=== PATIENT | female | born 1980 | race Hispanic/Latino ===

== ENCOUNTER 2019-11-14 17:05 | Observation (INO) | payer OTHER ==
[~2019-11-14] VITALS: Ht 167.6 cm; Wt 75.7 kg
[2019-11-14 18:11] LABS: APPEARANCE,URINE Clear (CLEAR); BILIRUBIN,URINE Negative (NEGATIVE); COLOR,URINE Yellow (YELLOW); GLUCOSE, URINE (UA) Negative (NEGATIVE); KETONES,URINE >=80 mg/dL (NEGATIVE); LEUKOCYTE ESTERASE ,URINE Negative (NEGATIVE); NITRATE,URINE Negative (NEGATIVE); OCCULT BLOOD,URINE Nonhemolyzed Trace (NEGATIVE); PROTEIN,URINE Trace mg/dL (NEGATIVE)
[2019-11-14 18:28] LABS: BACTERIA,URINE None Seen /HPF (None Seen); MUCUS,URINE Few LPF (None Seen); RENAL EPITHELIAL CELLS,URINE Few /HPF (None Seen); TRANSITIONAL EPI CELLS,URINE Few /HPF (None Seen); WBC,URINE 0-1 /HPF (0-1)
[2019-11-14] MEDS ORDERED: LACTATED RINGERS 1000ML 1,000 ML IV PRN (18:34)
[2019-11-14 18:45] LABS: HEMATOCRIT 35.8 % (36-48); MEAN CORPUSCULAR HEMOGLOBIN 27.9 pg (27.0-33.0); MEAN CORPUSCULAR HGB CONC 32.4 g/dL (32.0-36.0); MEAN CORPUSCULAR VOLUME 86.1 fL (79-99); RED BLOOD CELL COUNT(AUTO) 4.16 MIL/uL (4.00-5.50); RED CELL DISTRIBUTION WIDTH 15.3 % (11.0-15.5)
[2019-11-14] MEDS ORDERED: PROMETHAZINE HCL 25 MG/ML 1ML AMPULE IM SCH (18:45)
[2019-11-14] MEDS ORDERED: MEPERIDINE-PF 50 MG/ML SYG IM ONE (18:45)
[2019-11-14] MEDS ORDERED: CEFTRIAXONE SODIUM 1 GM IV ONE (18:45)
[2019-11-14] MEDS ORDERED: ACETAMINOPHEN-CODEINE 300/30MG TAB ONE (21:14)
[2019-11-14] MEDS ORDERED: ACETAMINOPHEN-CODEINE 300/30MG TAB PO ONE (21:15)
[2019-11-14] MEDS ORDERED: MEPERIDINE-PF 50 MG/ML SYG IM PRN (21:45)
[2019-11-14] MEDS ORDERED: PROMETHAZINE HCL 25 MG/ML 1ML AMPULE IM PRN (21:45)
[2019-11-14] MEDS: LACTATED RINGERS 1000ML 1,000 ML IV SCH (23:09)
[2019-11-15 07:18] LABS: ALBUMIN 2.4 g/dL (3.5-5.0); BILIRUBIN,TOTAL 0.7 mg/dL (0.2-1.0); CREATININE 0.6 mg/dL (0.5-1.5); TOTAL PROTEIN, SERUM 6.1 g/dL (6.0-8.3)
[2019-11-15 07:55] LABS: AMPHET/METH SCREEN,URINE NEGATIVE (NEGATIVE); BARBITURATE SCREEN, URINE NEGATIVE (NEGATIVE); BENZODIAZEPINES SCREEN,URINE NEGATIVE (NEGATIVE); CANNABINOID SCREEN,URINE NEGATIVE (NEGATIVE); COCAINE SCREEN,URINE NEGATIVE (NEGATIVE); OPIATE SCREEN,URINE NEGATIVE (NEGATIVE); PHENCYCLIDINE SCREEN,URINE NEGATIVE (NEGATIVE)
[2019-11-15] MEDS ORDERED: PROMETHAZINE HCL 25 MG/ML 1ML AMPULE IM PRN (08:15)
[2019-11-15] MEDS ORDERED: MEPERIDINE-PF 50 MG/ML SYG IVP PRN (08:15)
[2019-11-15 08:26] VITALS: BP 98/56
[2019-11-15] MEDS: LACTATED RINGERS 1000ML 1,000 ML IV SCH (10:31)
[2019-11-15 11:08] VITALS: BP 100/63
--- NOTE | 2019-11-15 12:30 | NUR ---
strained urine and pt passed a small stone. notified Dr. solorio and ordered to send specimen to pathology. Addendum: 11/15/19 at 1250 by JOSÉ MIGUEL POLLARD RN Amended: Links added.
[2019-11-15 15:24] VITALS: BP 120/75
--- NOTE | 2019-11-15 15:25 | NUR ---
pt is discharged, verbal and written discharge instructions given, pls refer to [facility]. informed of the follow up appointment. No prescription given. informed to call the doctor for further concerns. pt voiced understanding to all things discussed. Addendum: 11/15/19 at 1549 by JOSÉ MIGUEL POLLARD RN Amended: Links added.
--- NOTE | 2019-11-15 16:00 | NUR ---
pt is dismissed in stable condition. brought to private car via wheelchair by Afshan Boateng pcp Addendum: 11/15/19 at 1602 by JOSÉ MIGUEL POLLARD RN Amended: Links added.
== END 2019-11-15 16:00 | disposition home or self-care (01) ==
LOC: EDH 17:05 → LDH 17:06 → WSH 11-15 08:26
PROVIDERS: ADMIT Obstetrics & Gynecology; ATTEND Obstetrics & Gynecology
DX: O26.893 Other specified pregnancy related conditions, third trimester (principal); N20.0 Calculus of kidney; Z3A.36 36 weeks gestation of pregnancy
CPT/HCPCS: 36415 ×2; 76770; 80053; 80305; 81001; 82360; 85027; 87088; 96361 ×2; 96372 ×2; 96374; 99284; G0378 ×8; J0696; J2175 ×2; J2550 ×2; J7120 ×2; 96360

== ENCOUNTER 2019-12-10 18:45 | Emergency (ER) | payer OTHER ==
[~2019-12-10 18:45] MED LIST: PREN1COM PO
[2019-12-10 19:17] LABS: BASOPHILS % (AUTO) 0.5 % (0.0-5.0); EOSINOPHILS % (AUTO) 1.2 % (0.0-8.0); HEMATOCRIT 38.8 % (36-48); MEAN CORPUSCULAR HGB CONC 31.7 g/dL (32.0-36.0); MEAN CORPUSCULAR VOLUME 85.3 fL (79-99); MONOCYTES % (AUTO) 7.6 % (3.0-13.0); NEUTROPHILS % (AUTO) 71.2 % (40.0-77.0); PLATELET COUNT (AUTO) 188 K/uL (130-400); RED BLOOD CELL COUNT(AUTO) 4.55 MIL/uL (4.00-5.50); RED CELL DISTRIBUTION WIDTH 16.2 % (11.0-15.5); WHITE BLOOD COUNT (AUTO) 5.8 K/uL (4.8-10.8)
[2019-12-10 19:26] LABS: INR 1.05 (0.85-1.15); PARTIAL THROMBOPLASTIN TIME 25.9 SEC (26.3-35.5); PROTHROMBIN TIME 11.3 SEC (9.6-11.6)
[2019-12-10 19:27] LABS: CREATININE 0.7 mg/dL (0.5-1.5); POTASSIUM 3.4 mmol/L (3.5-5.1)
[2019-12-10 19:33] LABS: ALBUMIN 2.9 g/dL (3.5-5.0); BILIRUBIN,TOTAL 0.4 mg/dL (0.2-1.0); TOTAL PROTEIN, SERUM 6.9 g/dL (6.0-8.3)
[2019-12-10 19:36] LABS: APPEARANCE,URINE Clear (CLEAR); BILIRUBIN,URINE Negative (NEGATIVE); COLOR,URINE Yellow (YELLOW); GLUCOSE, URINE (UA) Negative (NEGATIVE); KETONES,URINE Negative (NEGATIVE); LEUKOCYTE ESTERASE ,URINE Large (NEGATIVE); NITRATE,URINE Negative (NEGATIVE); OCCULT BLOOD,URINE Large (NEGATIVE); PROTEIN,URINE Negative (NEGATIVE); UROBILINOGEN,URINE 0.2 mg/dL (0.2-1.0)
[2019-12-10] MEDS ORDERED: POTASSIUM BICARB/CIT AC 25 MEQ TABLET.EFF ONE (19:38)
[2019-12-10 19:40] LABS: B-TYPE NATRIURETIC PEPTIDE 381 pg/mL (0-100)
[2019-12-10 20:12] LABS: BACTERIA,URINE Few /HPF (None Seen); SQUAMOUS EPITHELIAL CELL,UR Rare /HPF (0-2); TRANSITIONAL EPI CELLS,URINE Few /HPF (None Seen)
[2019-12-10 20:13] LABS: WBC,URINE 26-50 /HPF (0-1)
[2019-12-10] MEDS ORDERED: CEPHALEXIN 500 MG CAPSULE ONE (20:42)
== END 2019-12-10 21:11 | disposition home or self-care (01) ==
LOC: EDH 18:45
DX: O86.20 Urinary tract infection following delivery, unspecified (principal); O14.05 Mild to moderate pre-eclampsia, complicating the puerperium
CPT/HCPCS: 36415; 71045; 80053; 81001; 82550; 83880; 84443; 84484; 85025; 85610; 85730; 87088; 93005